=== PATIENT | male | born 1980 | race Caucasian/White ===

== ENCOUNTER 2020-10-02 13:41 | Inpatient (IN) | payer MEDICAID ==
[~2020-10-02] VITALS: Ht 193 cm; Wt 166.2 kg
[2020-10-02 14:14] LABS: BASOPHILS % (AUTO) 1 % (0-1); EOSINOPHILS % (AUTO) 0 % (1-7); LYMPHOCYTES % (AUTO) 10 % (22-44); MEAN CORPUSCULAR HEMOGLOBIN 28.2 pg (27.5-34.5); MEAN CORPUSCULAR HGB CONC 33.1 g/dL (33.2-36.2); MEAN PLATELET VOLUME 8.2 fL (7.4-10.4); MONOCYTES % (AUTO) 6 % (2-9); NEUTROPHILS % (AUTO) 84 % (42-75); PLATELET COUNT 213 x10^3/uL (130-400); RED BLOOD COUNT 5.63 x10^6/uL (4.38-5.82); RED CELL DISTRIBUTION WIDTH 13.4 % (9.4-14.8)
--- NOTE | 2020-10-02 14:16 | NUR ---
PT BIBA FROM [facility]. PER EMS PT TOOK 10- 10MG TABS OF ZOTERRA YESTERDAY IN A SA. PT WAS DISCHARGED TO [facility] ON A HOLD THIS MORNING AT 0600. PER EMS PT HAS BEEN SLEEPING SINCE ARRIVAL TO [facility] AND WAS FOUND AT APPROX 1300 TO BE HAVING PERIODS OF APNEA AND NOT BREATHING WELL. PER EMS PT WAS GIVEN 0.4MG NARCAN IM BY [facility] STAFF WITH NO IMPROVMENT. PT CURRENTLY HAVING PERIODS OF APNEA AND DESATTING TO 60%, WHEN STERNAL RUBBED PT'S SAT IS 94% ON 10L OXYMASK. RT AT BEDSIDE TO EVALUATE PT. PT MOVED TO TRAUMA 3 FOR POTENTIAL INTUBATION PER RT AND EDMD. PT NOTED TO BE MORE AWAKE AFTER MOVES AND STATES "I WANT TO TRY CPAP BEFORE YOU TUBE ME". PT A&OX4. EDMD, RT, AND THIS RN AT BEDSIDE. PT RESTING IN [facility], MONTIORING IN PLACE. REPORT TO GARY JACKSON.
[2020-10-02 14:26] LABS: ALANINE AMINOTRANSFERASE 101 U/L (12-78); ALBUMIN 3.1 g/dL (3.4-5.0); ANION GAP 5 mmol/L (5-15); CALCIUM 8.9 mg/dL (8.5-10.1); CHLORIDE 100 mmol/L (98-107); CREATININE 0.66 mg/dL (0.7-1.3)
[2020-10-02 14:27] LABS: SALICYLATE LEVEL < 1.7 mg/dL (2.8-20.0)
[2020-10-02 14:29] LABS: ALKALINE PHOSPHATASE 101 U/L (45-117); BILIRUBIN,TOTAL 0.6 mg/dL (0.2-1.0); TOTAL PROTEIN 7.6 g/dL (6.4-8.2)
--- NOTE | 2020-10-02 14:30 | NUR ---
PT TOLERATING CPAP WELL,. PT BEING OBSERVED BY SITTER FROM [facility] AT BEDSIDE.
--- NOTE | 2020-10-02 15:25 | NUR ---
DR. CORNELIUS AT BEDSIDE TO COLLECT COVID TEST AFTER PNEUMONIA FOUND ON CXR.
[2020-10-02] MEDS ORDERED: CEFTRIAXONE 1,000 MG in DEXTROSE 5% 50 ML IVPB ONE (15:30)
[2020-10-02] MEDS ORDERED: AZITHROMYCIN 500 MG in SODIUM CHLORIDE 0.9% 250 ML IV ONE (15:30)
[2020-10-02] MEDS ORDERED: FUROSEMIDE 20 MG/2 ML IV ONE (15:30)
[2020-10-02] MEDS ORDERED: FUROSEMIDE 20 MG/2 ML ONE (15:38)
--- NOTE | 2020-10-02 15:45 | NUR ---
DR. ARCOS AT BEDSIDE FOR ADMIT.
--- NOTE | 2020-10-02 15:50 | NUR ---
LAB AT BEDSIDE FOR BLOOD CULTURES X 2.
[2020-10-02] MEDS ORDERED: ENOXAPARIN 40 MG/0.4 ML SQ SCH (16:00)
[2020-10-02] MEDS ORDERED: POLYETHYLENE GLYCOL 17 GM PACKET PO PRN (16:00)
[2020-10-02] MEDS ORDERED: LABETALOL 5MG/ML, 20ML IVPush PRN (16:00)
[2020-10-02] MEDS ORDERED: ONDANSETRON 2MG/ML, 2ML IVPush PRN (16:00)
[2020-10-02] MEDS ORDERED: BISACODYL 10 MG SUPP PR PRN (16:00)
[2020-10-02] MEDS ORDERED: ENALAPRILAT 1.25 MG/ML, 2ML IVPush PRN (16:00)
--- NOTE | 2020-10-02 16:10 | NUR ---
PT VOIDED 1000 MLS OF URINE.
--- NOTE | 2020-10-02 16:30 | NUR ---
PT REPEATEDLY BIPAP MACHINE MASK. HE WAS PALCED ON 10 LITERS VIA OXY MASK. RT AWARE.
[2020-10-02] MEDS: AMPICILLIN/SULBACTAM 3 GM in SODIUM CHLORIDE 0.9% 100 ML IV SCH ×2 (16:40→22:06)
[2020-10-02 18:31] LABS: AMPHETAMINE SCREEN, URINE Positive (Negative); BARBITURATE SCREEN, URINE Negative (Negative); BENZODIAZEPINE SCREEN, URINE Negative (Negative); CANNABINOID SCREEN, URINE Negative (Negative); COCAINE SCREEN, URINE Negative (Negative); METHADONE SCREEN, URINE Negative (Negative); OPIATE SCREEN, URINE Negative (Negative)
[2020-10-03] MEDS ORDERED: LORazepam 2 MG/ML, 1ML IVPush PRN (00:30)
[2020-10-03] MEDS ORDERED: LORazepam 2 MG/ML, 1ML ONE (00:35)
[2020-10-03] MEDS: AMPICILLIN/SULBACTAM 3 GM in SODIUM CHLORIDE 0.9% 100 ML IV SCH ×4 (04:09→22:07)
[2020-10-03 04:26] LABS: BASOPHILS % (AUTO) 1 % (0-1); EOSINOPHILS % (AUTO) 1 % (1-7); LYMPHOCYTES % (AUTO) 17 % (22-44); MEAN CORPUSCULAR HEMOGLOBIN 28.8 pg (27.5-34.5); MEAN CORPUSCULAR HGB CONC 33.8 g/dL (33.2-36.2); MEAN PLATELET VOLUME 8.4 fL (7.4-10.4); MONOCYTES % (AUTO) 10 % (2-9); NEUTROPHILS % (AUTO) 72 % (42-75); PLATELET COUNT 195 x10^3/uL (130-400); RED BLOOD COUNT 5.85 x10^6/uL (4.38-5.82); RED CELL DISTRIBUTION WIDTH 13.2 % (9.4-14.8)
[2020-10-03 04:34] LABS: ALANINE AMINOTRANSFERASE 90 U/L (12-78); ALBUMIN 3.1 g/dL (3.4-5.0); ANION GAP 5 mmol/L (5-15); CALCIUM 9.1 mg/dL (8.5-10.1); CHLORIDE 99 mmol/L (98-107); CREATININE 0.71 mg/dL (0.7-1.3)
[2020-10-03 04:35] LABS: ALKALINE PHOSPHATASE 106 U/L (45-117); BILIRUBIN,TOTAL 0.6 mg/dL (0.2-1.0); TOTAL PROTEIN 7.9 g/dL (6.4-8.2)
[2020-10-03] MEDS: SENNA/DOCUSATE TABLET PO SCH (09:00)
[2020-10-03] MEDS: EMTRICITABINE/TENOFOVIR 200 MG/300 MG TABLET PO SCH (10:18)
[2020-10-03 10:59] VITALS: BP 159/86
[2020-10-03] MEDS: CARVEDILOL 3.125 MG TABLET PO SCH ×2 (11:31→19:20)
[2020-10-03] MEDS: LISINOPRIL 10 MG TABLET PO SCH ×2 (11:32→20:31)
[2020-10-03 12:32] VITALS: BP 119/65
[2020-10-03] MEDS: ENOXAPARIN 40 MG/0.4 ML SQ SCH (15:38)
[2020-10-03 20:21] VITALS: BP 152/94
[2020-10-03] MEDS: ACETAMINOPHEN 325 MG TABLET PO PRN (23:47)
[2020-10-04 02:27] VITALS: BP 147/84
[2020-10-04] MEDS: ENOXAPARIN 40 MG/0.4 ML SQ SCH ×2 (02:36→14:47)
[2020-10-04] MEDS: AMPICILLIN/SULBACTAM 3 GM in SODIUM CHLORIDE 0.9% 100 ML IV SCH ×4 (04:04→21:47)
[2020-10-04] MEDS: CARVEDILOL 3.125 MG TABLET PO SCH ×2 (06:00→18:33)
[2020-10-04 07:52] VITALS: BP 109/76
[2020-10-04] MEDS: SENNA/DOCUSATE TABLET PO SCH (09:46)
[2020-10-04] MEDS: EMTRICITABINE/TENOFOVIR 200 MG/300 MG TABLET PO SCH (09:46)
[2020-10-04] MEDS: LISINOPRIL 10 MG TABLET PO SCH ×2 (09:46→21:47)
[2020-10-04 12:57] VITALS: BP 141/89
[2020-10-04 19:39] VITALS: BP 121/77
[2020-10-04 22:55] VITALS: BP 115/74
[2020-10-04] MEDS: ACETAMINOPHEN 325 MG TABLET PO PRN (23:01)
[2020-10-05 00:36] VITALS: BP 112/72
[2020-10-05] MEDS: AMPICILLIN/SULBACTAM 3 GM in SODIUM CHLORIDE 0.9% 100 ML IV SCH ×4 (03:33→21:57)
[2020-10-05] MEDS: ENOXAPARIN 40 MG/0.4 ML SQ SCH ×2 (03:34→15:00)
[2020-10-05] MEDS: CARVEDILOL 3.125 MG TABLET PO SCH ×2 (06:08→17:55)
[2020-10-05 06:50] VITALS: BP 137/85
[2020-10-05] MEDS ORDERED: HEPARIN/LOVENOX MC SCH (08:00)
[2020-10-05] MEDS ORDERED: ACETAMINOPHEN 325 MG TABLET PO PRN (08:00)
[2020-10-05 08:39] LABS: O2 FLOW 8L L/min
[2020-10-05] MEDS: EMTRICITABINE/TENOFOVIR 200 MG/300 MG TABLET PO SCH (09:15)
[2020-10-05] MEDS: SENNA/DOCUSATE TABLET PO SCH (09:15)
[2020-10-05] MEDS: LISINOPRIL 10 MG TABLET PO SCH ×2 (09:15→20:46)
[2020-10-05 13:48] VITALS: BP 115/72
[2020-10-05] MEDS ORDERED: SODIUM CHLORIDE 0.9% 1,000 ML IV SCH (14:00)
[2020-10-05] MEDS: SODIUM CHLORIDE 0.9% 1,000 ML IV SCH (16:10)
[2020-10-05] MEDS: HEPARIN 5,000 UNITS/ML, 1ML SQ SCH (16:20)
[2020-10-05 19:37] VITALS: BP 141/92
[2020-10-06] MEDS: HEPARIN 5,000 UNITS/ML, 1ML SQ SCH ×2 (00:06→08:00)
[2020-10-06 00:09] VITALS: BP 142/85
[2020-10-06] MEDS: AMPICILLIN/SULBACTAM 3 GM in SODIUM CHLORIDE 0.9% 100 ML IV SCH ×2 (05:55→09:49)
[2020-10-06] MEDS: CARVEDILOL 3.125 MG TABLET PO SCH (05:55)
[2020-10-06] MEDS: SODIUM CHLORIDE 0.9% 1,000 ML IV SCH (05:56)
[2020-10-06 07:37] VITALS: BP 135/88
[2020-10-06] MEDS ORDERED: GUAIFENESIN ER 600 MG TABLET PO SCH (09:00)
[2020-10-06] MEDS: EMTRICITABINE/TENOFOVIR 200 MG/300 MG TABLET PO SCH (09:49)
[2020-10-06] MEDS: LISINOPRIL 10 MG TABLET PO SCH (09:49)
[2020-10-06] MEDS: SENNA/DOCUSATE TABLET PO SCH (09:49)
[2020-10-06] MEDS ORDERED: EMTR1TAB8 PO (12:16)
[2020-10-06] MEDS ORDERED: LISI-170 PO (12:16)
[2020-10-06 13:23] VITALS: BP 114/64
== END 2020-10-06 14:44 | disposition home or self-care (01) | DRG 193 ==
LOC: ED 16:01 → EDIP 16:43 → CCU 17:13 → 4NW 10-03 10:50
PROVIDERS: ADMIT Internal Medicine; ATTEND Internal Medicine
PROC: 5A09357 Assistance with Respiratory Ventilation, Less than 24 Consecutive Hours, Continuous Positive Airway Pressure (ICD-10-PCS; principal; 2020-10-02)
DX: J18.9 Pneumonia, unspecified organism (principal); J96.01 Acute respiratory failure with hypoxia; R45.851 Suicidal ideations; F31.61 Bipolar disorder, current episode mixed, mild; E72.20 Disorder of urea cycle metabolism, unspecified; E87.1 Hypo-osmolality and hyponatremia; F15.20 Other stimulant dependence, uncomplicated; Z68.41 Body mass index [BMI] 40.0-44.9, adult; Z20.822 Contact with and (suspected) exposure to COVID-19; F17.210 Nicotine dependence, cigarettes, uncomplicated; G47.31 Primary central sleep apnea; E66.01 Morbid (severe) obesity due to excess calories; F10.10 Alcohol abuse, uncomplicated; G47.33 Obstructive sleep apnea (adult) (pediatric); Z83.3 Family history of diabetes mellitus; Z82.49 Family history of ischemic heart disease and other diseases of the circulatory system; Z83.6 Family history of other diseases of the respiratory system
CPT/HCPCS: 36415; 36600; 70450; 71045; 80053; 80299; 80307; 80320; 80329; 82140; 82803; 83605; 83880; 84145; 85025; 85379; 87040; 87070; 87081; 87205; 93005; 94660; 96372; 96374; 99285; G0378; J0295; J1650; U0005; G0480; J1940; J2060; J7030; U0003